=== PATIENT | male | born 1995 | race African-American/Black ===

== ENCOUNTER 2016-11-20 11:17 | Emergency (ER) | payer OTHER ==
[2016-11-20 11:27] VITALS: BP 124/68
[2016-11-20] MEDS ORDERED: IBUPROFEN 800 MG TABLET PO STA (12:32)
[2016-11-20] MEDS ORDERED: IBUPROFEN 800 MG TABLET PO ONE (12:39)
--- NOTE | 2016-11-20 13:43 | CT Preliminary Report ---
Exam: CT Head W/O IMPRESSION: Normal head CT. [facility] SITE ID: [id number]
--- NOTE | 2016-11-20 13:46 | CT Report ---
EXAM: CT HEAD EXAM DATE: 11/20/2016 01:24 PM. CLINICAL HISTORY: Head injury. COMPARISON: None. TECHNIQUE: Multiaxial CT images were obtained from the foramen magnum to the vertex. IV contrast: Non e. Reformats: Coronal. In accordance with CT protocol optimization, one or more of the following dose reduction techniques w ere utilized for this exam: automated exposure control, adjustment of mA and/or KV based on patient s ize, or use of iterative reconstructive technique. FINDINGS: Parenchyma: No intraparenchymal hemorrhage. No evidence of mass, midline shift, or CT findings of inf arction. Yang-white differentiation is distinct. Extraaxial Spaces: Normal for age. No subdural or epidural collections identified. Ventricles: Normal in size and position. Sinuses: Imaged paranasal sinuses, orbits, and mastoids show no significant abnormality. Bones: No evidence of fracture or calvarial defect. Other: None. IMPRESSION: Normal head CT. [facility] Referring Provider Line: [phone] SITE ID: [id number]
--- NOTE | 2016-11-20 13:49 | ED Physician Documentation ---
PD HPI HEAD INJURY - Stated complaint Stated Complaint: HEAD INJURY - Chief complaint Chief Complaint: General - History obtained from History obtained from: Patient - History of Present Illness Mechanism of head injury: Blow Where head injury occurred: Work Timing - onset: Yesterday Location of injury: Front Quality of pain: Pain Associated symptoms: Nausea / vomiting. 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 He presents now because of persistent headache and nausea. He denies vomiting or visual disturbance. He has been ambulatory since the incident occurred. Review of Systems Constitutional: denies: Fever, Fatigue Eyes: denies: Decreased vision Ears: denies: Tinnitus/ringing Nose: denies: Congestion Throat: denies: Sore throat Cardiac: denies: Chest pain / pressure Respiratory: denies: Dyspnea, Cough GI: reports: Nausea. denies: Abdominal Pain, Vomiting : denies: Dysuria, Incontinent Skin: denies: Laceration (s) Musculoskeletal: denies: Neck pain, Back pain Neurologic: reports: Headache, Head injury. denies: Focal weakness, Numbness, Altered mental status, LOC PD PAST MEDICAL HISTORY - Past Medical History Past Medical History: No - Past Surgical History Past Surgical History: No - Present Medications Home Medications: Ambulatory Orders Medication Instructions Recorded Confirmed No Known Home Medications [No 11/20/16 11/20/16 Known Home Medications] - Allergies Allergies/Adverse Reactions: Allergies Allergy/AdvReac Type Severity Reaction Status Date / Time No Known Drug Allergies Allergy Verified 11/20/16 11:24 - Social History Does the pt smoke?: No Smoking Status: Never smoker Does the pt drink ETOH?: No Does the pt have substance abuse?: No - Immunizations Immunizations are current?: Yes Immunizations: TDAP current <10years - POLST Patient has POLST: No PD ED PE NORMAL - Vitals Vital signs reviewed: Yes (normal) - General General: Alert and oriented X 3, Well developed/nourished - HEENT HEENT: PERRL, EOMI, Ears normal, Pharynx benign, Other (There is mild soft tissue swelling of the mid forehead, with associated tenderness to palpation. 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 There is no evidence of intracranial abnormality or skull fracture on CT scan of the head. Treatment in the emergency department included administration of ibuprofen 800 mg orally. 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 Departure - Departure Disposition: 01 Home, Self Care Clinical Impression: Forehead contusion Qualifiers: Encounter type: initial encounter Qualified Code(s): S00.83XA - Contusion of other part of head, initial encounter Condition: Stable Instructions: ED Contusion Scalp Follow-Up: TAY Marrero [Provider Group] Comments: Apply ice pack to the injured area intermittently for the next 2 days. You can use ibuprofen, up to 600 mg 3 times daily if needed for pain. Follow up with your primary physician, or return to the emergency department, if you develop increasing headache, persistent vomiting, or otherwise worsening symptoms. Forms: Activity restrictions Discharge Date/Time: 11/20/16 14:06
== END 2016-11-20 14:06 | disposition home or self-care (01) ==
LOC: ED 11:17
DX: S00.83XA Contusion of other part of head, initial encounter (principal); W22.09XA Striking against other stationary object, initial encounter; Y93.89 Activity, other specified; Y92.135 Garage on military base as the place of occurrence of the external cause; Y99.1 Military activity
CPT/HCPCS: 70450; 99283; A9270